=== PATIENT | male | born 1980 | race Caucasian/White ===

== ENCOUNTER 2018-11-06 19:19 | Emergency (ER) | payer MEDICAID ==
[~2018-11-06] VITALS: Ht 193 cm; Wt 81.2 kg
[2018-11-06] MEDS ORDERED: ALBU8.5H8 IH (19:38)
--- NOTE | 2018-11-06 19:41 | NUR ---
Dr. Soler at bedside for MSE.
[2018-11-06 19:59] LABS: BASOPHILS # (AUTO) 0.1 K/uL (0.0-8.0); EOSINOPHILS # (AUTO) 0.1 K/uL (0.0-0.7); EOSINOPHILS % (AUTO) 1.1 % (0.0-7.0); HEMATOCRIT 43.3 % (36.7-47.1); LYMPHOCYTES # (AUTO) 1.5 K/uL (20.0-40.0); LYMPHOCYTES % (AUTO) 19.3 % (20.5-51.5); MEAN CORPUSCULAR HEMOGLOBIN 32.9 uug (23.8-33.4); MEAN CORPUSCULAR HGB CONC 35 g/dL (32.5-36.3); MONOCYTES # (AUTO) 0.4 K/uL (2.0-10.0); MONOCYTES % (AUTO) 5.3 % (0.0-11.0); NEUTROPHILS # (AUTO) 5.7 K/uL (1.8-8.9); NEUTROPHILS % (AUTO) 73.3 % (38.5-71.5); PLATELET COUNT (AUTO) 205 K/uL (152-348); RED BLOOD CELL COUNT(AUTO) 4.56 MIL/uL (4.06-5.63); WHITE BLOOD COUNT (AUTO) 7.8 K/uL (3.6-10.2)
[2018-11-06 20:08] LABS: CREATININE 0.9 mg/dL (0.6-1.3)
[2018-11-06 20:19] LABS: BILIRUBIN,DIRECT 0.1 mg/dL (0.0-0.2); BILIRUBIN,TOTAL 0.4 mg/dL (0.2-1.0); TOTAL PROTEIN, SERUM 7.3 g/dL (6.4-8.2)
[2018-11-06] MEDS ORDERED: IOHEXOL 350 100 ML INFUS..BTL ONE (20:20)
[2018-11-06] MEDS ORDERED: NORMAL SALINE FLUSH 10 ML DISP.SYRIN ONE (20:20)
[2018-11-06] MEDS ORDERED: IV NORMAL SALINE 250 ML IV ONE (20:20)
[2018-11-06] MEDS ORDERED: SWABABLE VALVE TRANSFER SET EA MC ONE (20:20)
--- NOTE | 2018-11-06 20:55 | NUR ---
Pt out of ER for CTA.
--- NOTE | 2018-11-06 21:12 | NUR ---
Pt back to ER from CT.
[2018-11-06] MEDS ORDERED: DEXAMETHASONE SOD PHOSPHATE 10 MG INJ ONE (21:43)
[2018-11-06] MEDS ORDERED: IV NORMAL SALINE 1000 ML BAG IV ONE (21:45)
[2018-11-06] MEDS ORDERED: DEXAMETHASONE SOD PHOSPHATE 4 MG INJ IV ONE (21:45)
[2018-11-06] MEDS ORDERED: ASPIRIN 325 MG TABLET PO ONE (23:00)
[2018-11-06] MEDS ORDERED: PANTOPRAZOLE SODIUM 40 MG TABLET.DR PO ONE ×2 (23:00→23:02)
[2018-11-06] MEDS ORDERED: MAG HYDROX/AL HYDROX/SIMETH 30 ML LIQUID UDC PO ONE (23:00)
[2018-11-06] MEDS ORDERED: MAG HYDROX/AL HYDROX/SIMETH 30 ML LIQUID UDC ONE (23:01)
[2018-11-06] MEDS ORDERED: ASPIRIN 325 MG TABLET ONE (23:01)
--- NOTE | 2018-11-06 23:21 | NUR ---
Deanne called back from patient's insurance . Requesting for Dr Soler to call Dr Cornejo
--- NOTE | 2018-11-06 23:51 | NUR ---
Deanne called back to inform to call Dr Benoit for MD to report
--- NOTE | 2018-11-06 23:56 | NUR ---
Dr. Soler speaking with Dr. Benoit.
--- NOTE | 2018-11-07 00:12 | NUR ---
Deanne special education case manager gave transfer info. Patient will be going to [facility]. Call for Report
--- NOTE | 2018-11-07 00:13 | NUR ---
Insurance gave authorization for ambulance transfer #[id number]
--- NOTE | 2018-11-07 00:21 | NUR ---
Called [facility] to transfer patient to [facility] via [facility]. ETA is at [phone] with trip #[id number]
--- NOTE | 2018-11-07 00:29 | NUR ---
Report given to Rebecca BURGOS [facility].
--- NOTE | 2018-11-07 01:07 | NUR ---
Patient does not wish to proceed with medical care recommended by Dr. Harvey. Patient given information related to possible complications, up to and including , which could occur as a result of leaving the hospital at this time. Patient verbalizes understanding of risks involved due to leaving against medical advice. Patient has signed AMA form.
[2018-11-07 01:08] VITALS: BP 141/98
== END 2018-11-07 01:09 | disposition left against medical advice (07) ==
LOC: ER 19:19
DX: H81.12 Benign paroxysmal vertigo, left ear (principal); R20.2 Paresthesia of skin; R51 Headache; M54.2 Cervicalgia; M54.5 Low back pain; J45.909 Unspecified asthma, uncomplicated; Z79.899 Other long term (current) drug therapy
CPT/HCPCS: 36415; 70496; 80048; 80076; 85025; 85730; 96374; 99284; J1100; Q9967; A4663; J3490; J7030; J7050